=== PATIENT | male | born 1980 | race Caucasian/White ===

== ENCOUNTER 2019-01-13 10:06 | Outpatient (CLI) | payer BC | END 2019-01-13 10:07 | disposition home or self-care (01) | LOC: CTENTCT 10:06 | PROVIDERS: ATTEND Otolaryngology Plastic Surgery within the Head & Neck | DX: J32.9 Chronic sinusitis, unspecified (principal) | CPT/HCPCS: 70486 ==

== ENCOUNTER 2019-01-22 09:01 | Day surgery (SDC) | payer BC ==
[2019-01-22] MEDS ORDERED: Oxymetazoline HCl 0.05% ( 15 ML ) ONE (10:16)
[2019-01-22] MEDS ORDERED: Midazolam HCl 2 mg/2 ml Vial ONE (10:38)
[2019-01-22] MEDS ORDERED: Fentanyl 100 MCG/2 ML VIAL ONE ×3 (11:36→13:10)
[2019-01-22] MEDS ORDERED: methylPREDNISolone Sod Succ 40 MG VIAL ONE (11:36)
[2019-01-22] MEDS ORDERED: Oxymetazoline HCl 0.05% (30 ML BOT) ONE ×2 (11:40→11:50)
[2019-01-22] MEDS ORDERED: Bacitracin Zinc Ointment 30 gm TUBE ONE (11:40)
[2019-01-22] MEDS ORDERED: Lidocaine 1% w/Epinephrine 1:100K 20 ML VIAL ONE ×2 (11:40→11:50)
[2019-01-22] MEDS ORDERED: Metoprolol Tartrate 5 MG/5 ML VIAL ONE (13:23)
[2019-01-22] MEDS ORDERED: Promethazine HCl 25 MG/ML VIAL ONE ×2 (13:39→14:22)
[2019-01-22] MEDS ORDERED: hydrALAZINE 20 MG/ML VIAL ONE (13:47)
[2019-01-22] MEDS ORDERED: Sodium Chloride 0.9% 10 ML ONE (14:22)
[2019-01-22] MEDS ORDERED: Morphine 2 MG/ML SYRINGE ONE (14:44)
[2019-01-22] MEDS ORDERED: Succinylcholine Chloride 20 MG/ML 10 ml SYRINGE FS ONE (14:56)
[2019-01-22] MEDS ORDERED: Dexamethasone 20 MG/5 ML VIAL ONE (14:56)
[2019-01-22] MEDS ORDERED: Ondansetron PF 4 MG/2 ML Vial ONE (14:56)
[2019-01-22] MEDS ORDERED: PROPOFOL 200 MG/20 ML VIAL ONE (14:56)
[2019-01-22] MEDS ORDERED: Lidocaine 1% PF 5 ML VIAL ONE (14:56)
[2019-01-22] MEDS ORDERED: Hydrocodone-Acetamin 15 ML UDCUP ONE (15:18)
--- NOTE | 2019-01-23 13:34 | OP ---
DATE OF PROCEDURE: 01/22/2019 PREOPERATIVE DIAGNOSES: 1. Chronic rhinosinusitis. 2. Nasal septal deviation. 3. Bilateral inferior turbinate hypertrophy. 4. Nasal obstruction. POSTOPERATIVE DIAGNOSES: 1. Chronic rhinosinusitis. 2. Nasal septal deviation. 3. Bilateral inferior turbinate hypertrophy. 4. Nasal obstruction. PROCEDURES PERFORMED: 1. Bilateral endoscopic sinus surgery, total ethmoidectomies. 2. Bilateral endoscopic sinus surgery, maxillary antrostomy. 3. Bilateral endoscopic sinus surgery, frontal sinusotomies. 4. Bilateral endoscopic sinus surgery, sphenoidotomies. 5. Nasal septoplasty. 6. Bilateral inferior turbinate submucosal resection. ESTIMATED BLOOD LOSS: 50 mL. COMPLICATIONS: None. ANESTHESIA: GETA. DESCRIPTION OF PROCEDURE: The patient was taken to the operating room and placed supine on the table. General endotracheal anesthesia was obtained by the anesthesia staff. Tube was secured in the left lower lip. Patient was then placed in the beach chair position, and Afrin pledgets were placed in the nasal cavity. Injections of 1% lidocaine with 1:100,000 epinephrine were made into the nasal septum as well as the inferior turbinates. Patient was then prepped and draped in standard surgical fashion for nasal surgery. Following this, the Afrin pledgets were removed. A Gregor incision was made on the left nasal septum. Submucoperichondrial dissection was performed. The deviated portions of the septum included portions of the cartilage and the bony septum. These isolated areas were removed using 3 cutting rongeurs. There was noted to be a large dorsal and caudal strut, left intact for support of the nose. The mucoperichondrial flaps were then reapproximated using a 4-0 gut stitch. Any straight pieces of cartilage were crushed prior to this and placed between the mucoperichondrial flaps. Following this, the inferior turbinates were then punctured with a submucosal coblation wand, and submucosal coblations were performed of multiple areas of the inferior portion of the anterior inferior turbinate. Please note that the submucosal microdebrider was used to submucosally resect the anterior and inferior portions of the inferior turbinates bilaterally. Following this, the inferior turbinates were gently outfractured with a Jud elevator. Following this, a 0 degree endoscope was advanced into the middle meatus. The middle turbinates were identified and were gently medialized using a Jud elevator. Following this, the uncinate process was identified bilaterally and was anteriorly fractured using a ball-ended probe. Following this, the uncinate process was removed using the 0-degree microdebrider and the up-biting Blakesley forceps bilaterally. Following this, the natural maxillary sinus ostia was identified using a ball-ended probe and then the maxillary sinus ostia was gently widened using the curved microdebrider and straight Blakesley forceps bilaterally. Following this, the ethmoidal bulla was identified and was then punctured on its medial and inferior aspects of the 0-degree microdebrider. Using the microdebrider and the up-biting Blakesley forceps, the ethmoidal bulla was removed. Following this, the grand lamella was identified and was punctured into the posterior ethmoidal cells. Working from posterior to anterior, the ethmoidal cells were opened in a mucosal sparing technique. Staying just medial to the superior turbinates, the attachment of the superior turbinates to the posterior nasal wall was identified. Staying just medial and inferior to this landmark, a sphenoid sinus ostia was created in a Cordero tip suction bilaterally. Following this, the sphenoid sinus ostia were then widened bilaterally using the microdebrider in a medial and inferior direction. Following this, the 45-degree endoscope along with the 40-degree microdebrider blade was used to further open the frontal sinus recess and frontal sinus ostia bilaterally. Following this, the nasal cavity was irrigated. MeroPacks were replaced. Jones splints were placed and secured. The patient tolerated the procedure well. Job ID: [id number]
== END 2019-01-22 15:50 | disposition home or self-care (01) ==
LOC: SDC 09:01
PROVIDERS: ATTEND Otolaryngology Plastic Surgery within the Head & Neck
PROC: 099S8ZZ Drainage of Right Frontal Sinus, Via Natural or Artificial Opening Endoscopic (ICD-10-PCS; principal; 2019-01-22)
PROC: 09SM0ZZ Reposition Nasal Septum, Open Approach (ICD-10-PCS; principal; 2019-01-22)
PROC: 09TU8ZZ Resection of Right Ethmoid Sinus, Via Natural or Artificial Opening Endoscopic (ICD-10-PCS; principal; 2019-01-22)
PROC: 099T8ZZ Drainage of Left Frontal Sinus, Via Natural or Artificial Opening Endoscopic (ICD-10-PCS; principal; 2019-01-22)
PROC: 099R8ZZ Drainage of Left Maxillary Sinus, Via Natural or Artificial Opening Endoscopic (ICD-10-PCS; principal; 2019-01-22)
PROC: 09TV8ZZ Resection of Left Ethmoid Sinus, Via Natural or Artificial Opening Endoscopic (ICD-10-PCS; principal; 2019-01-22)
PROC: 099X8ZZ Drainage of Left Sphenoid Sinus, Via Natural or Artificial Opening Endoscopic (ICD-10-PCS; principal; 2019-01-22)
PROC: 099Q8ZZ Drainage of Right Maxillary Sinus, Via Natural or Artificial Opening Endoscopic (ICD-10-PCS; principal; 2019-01-22)
PROC: 09TL7ZZ Resection of Nasal Turbinate, Via Natural or Artificial Opening (ICD-10-PCS; principal; 2019-01-22)
PROC: 099W8ZZ Drainage of Right Sphenoid Sinus, Via Natural or Artificial Opening Endoscopic (ICD-10-PCS; principal; 2019-01-22)
DX: J32.4 Chronic pansinusitis (principal); J34.2 Deviated nasal septum; J34.3 Hypertrophy of nasal turbinates; J34.89 Other specified disorders of nose and nasal sinuses; H66.91 Otitis media, unspecified, right ear; H69.80 Other specified disorders of Eustachian tube, unspecified ear; J30.9 Allergic rhinitis, unspecified; Z79.51 Long term (current) use of inhaled steroids; Z79.899 Other long term (current) drug therapy
CPT/HCPCS: J0360; J1100; J2001; J2250; J2270; J2405; J2550; J2704; J2920; J3010